=== PATIENT | male | born 1960 | race Caucasian/White ===

== ENCOUNTER 2025-10-17 11:28 | Emergency (ER) | payer OTHER, SELFPAY ==
[2025-10-17 11:29] VITALS: BMI 27.6
[2025-10-17 11:38] VITALS: BP 145/74; PULSE 57; RESP 18; TEMP 36.4; O2SAT 98
--- NOTE | 2025-10-17 12:22 | PD.EDDENTL ---
ED Dental RME/HPI General Chief complaint: Dental/Oral/Throat Stated complaint: L TOOTH ABSCESS Time Seen by Provider: 10/17/25 11:42 Arrival date/time: 10/17/25 11:28 This is a 65-year-old male that comes into the emergency room with complaints of left upper molar pain. Patient states that this pain is where he has previously had a dental abscess in the past. Patient states that he tried to get a hold of his dentist but because it is a weekend and is a holiday weekend it is hard to get a hold of his dentist. Patient wants to be prescribed antibiotics so that the infection does not spread. Patient denies any fever or chills. Related Data Previous Rx's ?Medication ?Instructions ?Recorded amoxicillin 875 mg-potassium 1 tab PO BID #14 tabs 10/17/25 clavulanate 125 mg tablet amoxicillin 875 mg-potassium 1 tab PO BID #14 tabs 10/17/25 clavulanate 125 mg tablet amoxicillin 875 mg-potassium 1 tab PO BID #14 tabs 10/17/25 clavulanate 125 mg tablet amoxicillin 875 mg-potassium 1 tab PO Q12H #14 tabs 10/17/25 clavulanate 125 mg tablet ibuprofen 800 mg tablet 800 mg PO Q6H PRN pain #20 tabs 10/17/25 ibuprofen 800 mg tablet 800 mg PO Q6H PRN pain #20 tabs 10/17/25 ibuprofen 800 mg tablet 800 mg PO Q6H PRN pain #20 tabs 10/17/25 ibuprofen 800 mg tablet 800 mg PO Q6H PRN pain #20 tabs 10/17/25 Allergies Allergy/AdvReac Type Severity Reaction Status Date / Time No Known Allergies Allergy Verified 10/17/25 11:32 Review of Systems Review of Systems Systems Reviewed: All systems reviewed, normal except as documented Past Medical History Past Medical History Comments PMH COMMENT: Denies ED Exam Narrative Physical exam: VITAL SIGNS: Reviewed. GENERAL APPEARANCE: Alert and interactive, follows commands, no acute distress HEAD AND FACE: Non-traumatic. ENT: PERRL, conjuctiva pink and clear, eyelid no trauma, Mucous membrane moist. Mild if any erythema to back molar and upper left jaw, no pus pocket, no fluctuance no induration NECK: Supple, nontender, no nuchal rigidity. CHEST: No tenderness, no crepitus, no paradoxical movement, no retractions. LUNGS: breathing even and unlabored HEART: Regular rate, cap refill less than 2 seconds ABDOMEN: Soft, nondistended, no guarding, nontender, no rebound, no masses, NEUROLOGICAL: Gross motor function intact sensory function intact, Appropriate for age. MUSCULOSKELETAL: low back nontender, full range of motion. no midline tenderness, no meningismus, no step offs EXTREMITIES: No redness no swelling no skin breakdown on bilateral foot and leg. Distal neurovascular status intact bilateral foot SKIN: Color pink, dry Course Orders Category Date Time Status Amoxicillin/Pot Clav 875 [Augmentin 875] Med 10/17/25 12:22 Once 1 tab PO X1 ONE HYDROcodone*/APAP 5/325 [[place] 5/325] Med 10/17/25 12:22 Once 1 tab PO X1 ONE Ibuprofen Tab [Motrin Tab] Med 10/17/25 12:22 Once 800 mg PO X1 ONE Vital Signs Vital signs: Vital Signs Temperature 97.6 F 10/17/25 11:38 Pulse Rate 57 L 10/17/25 11:38 Respiratory Rate 18 10/17/25 11:38 Blood Pressure 145/74 H 10/17/25 11:38 Pulse Oximetry (%) 98 10/17/25 11:38 Oxygen Delivery Method Room Air 10/17/25 11:38 Dental / Oral MDM Narrative MDM Narrative:: I spoke to patient at length he would like to be treated with antibiotics as he was on antibiotics approximately 6 months ago for the same reason. Patient is just afraid of the infection getting as bad as it did before. I did tell patient that this can just be a toothache but will treat for early abscess. Will give patient Augmentin. Patient told to follow-up primary doctor in 1 to 2 days. Come back to the emergency room symptoms change or worsen. patient verbalized understanding. Follow up with primary provider in 1-2 days. Come back to ED if symptoms change or worsen Dorindaon dictation: Although this document has been carefully reviewed, there may still be some phonetic and other typographical errors. These errors are purely grammatical due to imperfections in the software program and should not be construed in any way to compromise the substance of the patient's medical care during this visit. Medications / Prescriptions Medication administrations:: Medication Administration History Hydrocodone Bitart/Acetaminophen (Hydrocodone/Apap 5/325 Tablet) 1 tab PO X1 ONE Stop: 10/17/25 12:23 Amoxicillin/Clavulanate Potassium (Amoxicillin/Pot Clav 875 Tablet) 1 tab PO X1 ONE Stop: 10/17/25 12:23 Ibuprofen (Ibuprofen Tab 400 Mg Tablet) 800 mg PO X1 ONE Stop: 10/17/25 12:23 Discharge Plan Plan Patient Disposition: HOME (Self Care) Patient condition on transfer: Stable Prescriptions/Referrals Prescriptions/Med Rec: New amoxicillin-pot clavulanate 875-125 mg tablet 1 tab PO Q12H Qty: 14 0RF ibuprofen 800 mg tablet 800 mg PO Q6H PRN (Reason: pain) Qty: 20 0RF amoxicillin-pot clavulanate 875-125 mg tablet 1 tab PO BID Qty: 14 0RF ibuprofen 800 mg tablet 800 mg PO Q6H PRN (Reason: pain) Qty: 20 0RF amoxicillin-pot clavulanate 875-125 mg tablet 1 tab PO BID Qty: 14 0RF ibuprofen 800 mg tablet 800 mg PO Q6H PRN (Reason: pain) Qty: 20 0RF amoxicillin-pot clavulanate 875-125 mg tablet 1 tab PO BID Qty: 14 0RF ibuprofen 800 mg tablet 800 mg PO Q6H PRN (Reason: pain) Qty: 20 0RF Problem List Clinical Impression: Toothache, Dental abscess Patient/Caregiver Discharge Instructions Discharge Activity: activity as tolerated Education Materials: ED Dental Abscess Additional Instructions: Follow up with primary provider in 1-2 days. Come back to ED if symptoms change or worsen Print Language: [place] Stand Alone Forms: Angelika Award Info., Patient Portal Info Letter PA/SENIOR PATIENT ACCOUNT REPRESENTATIVE Supervising Physician PA/SENIOR PATIENT ACCOUNT REPRESENTATIVE Supervising Physician: [email or web address]
[2025-10-17] MEDS: AMOXICILLIN/POT CLAV 875 TABLET 1 TAB PO (12:29)
[2025-10-17] MEDS: HYDROcodone/APAP 5/325 TABLET 1 TAB PO (12:29)
[2025-10-17] MEDS: IBUPROFEN TAB 400 MG TABLET 800 MG PO (12:29)
== END 2025-10-17 12:41 | disposition home or self-care (01) ==
LOC: SERX 12:39
PROVIDERS: Emergency Provider Emergency Medicine
DX: K04.7 Periapical abscess without sinus (principal)
CPT/HCPCS: 99281; A9270